=== PATIENT | female | born 1975 | race Caucasian/White ===

== ENCOUNTER 2017-06-20 03:29 | Emergency (ER) | payer SELFPAY ==
[~2017-06-20] VITALS: Ht 160 cm; Wt 95.3 kg
--- NOTE | 2017-06-20 03:42 | ED NECK/BACK PAIN COMPLAINT ---
History of Present Illness General Chief Complaint: Low Back Pain/Injury Stated Complaint: LEFT LOWER BACK PAIN XDAYS Source: patient Exam Limitations: no limitations Vital Signs & Intake/Output Vital Signs & Intake/Output Vital Signs Date Time Temp Pulse Resp B/P B/P Pulse O2 O2 Flow FiO2 Mean Ox Delivery Rate 06/20 0340 98.5 80 18 158/104 97 Room Air Allergies Coded Allergies: No Known Allergies (06/20/17) Reconcile Medications Tramadol HCl 50 MG TABLET 1-2 TAB PO TID PRN pain ten...[id number] Triage Nurses Notes Reviewed? 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 "I've been taking ibuprofen 800' s and flexeril and that hasn't been helping... I could sit up from bed this morning... My had to help me." She notes no radiating type pain, no weakness. She is otherwise well. Past History Travel History Traveled to [place] past 21 day No Medical History Any Pertinent Medical History? see below for history Musculoskeletal: back pain episodes in the past. Pneumonia Vaccine: 05/20/09 Influenza Vaccine: 05/20/09 Surgical History Surgical History: none Psychosocial History Who do you live with Family What is your primary language Georgian Family History Hx Contributory? No Review of Systems Review of Systems Constitutional: Reports: no symptoms. Eyes: Reports: no symptoms. Ears, Nose, Throat, Mouth: Reports: no symptoms. Respiratory: Reports: no symptoms. Cardiovascular: Reports: no symptoms. Gastrointestinal/Abdominal: Reports: no symptoms. Musculoskeletal: Reports: no symptoms. Skin: Reports: no symptoms. Neurological/Psychological: Reports: no symptoms. All Other Systems: Reviewed and Negative Physical Exam Physical Exam General Appearance: well developed/nourished, mild distress Head: atraumatic Eyes: Bilateral: normal appearance. Ears, Nose, Throat, Mouth: hearing grossly normal Neck: normal inspection, supple, full range of motion, normal alignment Respiratory: normal breath sounds Cardiovascular: regular rate/rhythm Gastrointestinal: soft, non-tender Back: normal inspection, muscle spasm, no vertebral tenderness, left lower lumbar and gluteal muscle spasm to palpation Extremities: normal range of motion Neurologic/Psych: awake, alert, oriented x 3, normal mood/affect Skin: intact, normal color, warm/dry Comments: light touch, dtr's, strength in lower extremities is symmetrical and intact. Core Measures CVA/TIA Diagnosis: No Progress Differential Diagnosis: herniated disc, myofascial strain Plan of Care: pt without radicular signs. no focal neuro findings. 2 days duration... conservative management merited... will intensify her tx with ultram... close follow up advised. Departure Departure Disposition: HOME OR SELF CARE Condition: Stable Clinical Impression Primary Impression: Back pain Secondary Impressions: Muscle spasm Referrals: Patient Has No Primary Care Dr (PCP/Family) Departure Forms: Customer Survey General Discharge Information Prescriptions: Current Visit Scripts Tramadol HCl 1-2 TAB PO TID PRN pain #10 TAB ten...[id number]
[2017-06-20] MEDS ORDERED: TRAMADOL HCL50 M1 PO (04:24)
[2017-06-20 04:39] VITALS: BP 142/67
== END 2017-06-20 04:40 ==
LOC: ERH 03:29
DX: M54.5 Low back pain (principal); M62.830 Muscle spasm of back